=== PATIENT | female | born 1985 | race Caucasian/White ===

== ENCOUNTER 2018-12-21 11:42 | Observation (INO) ==
[2018-12-21] MEDS ORDERED: ZOFRAN IV PRN (13:41)
[2018-12-21] MEDS: DILAUDID IV PRN ×2 (14:18→18:45)
[2018-12-21 14:58] LABS: BASO# 0.02 X1000 (0.0-0.2); BASO% 0.2 % (0.0-0.8); EOS# 0.14 X1000 (0.0-0.7); EOS% 1.5 % (0.0-10.0); HEMATOCRIT 44.6 % (37.0-47.0); HEMOGLOBIN 15.3 g/dL (12.0-16.0); IMM GRAN# 0.02 X1000 (0.0-0.04); IMM GRAN% 0.2 % (0.0-0.5); LYMPH# 2.73 X1000 (1.2-3.4); LYMPH% 28.6 % (20.5-51.1); MCH 32.1 PG (27-31); MCHC 34.3 g/dL (33-37); MCV 93.7 FL (81-99); MONO# 0.67 X1000 (0.11-0.59); MPV 8.8 FL (7.4-10.4); NEUT# 5.98 X1000 (1.4-6.5); NEUT% 62.5 % (42.2-75.2); PLT 475 X1000 (130-400); RBC 4.76 XMIL (4.2-5.4); RDW 13.2 % (11.5-14.5); WBC 9.56 X1000 (4.8-10.8)
[2018-12-21 16:29] LABS: AGAP 14; ALB/GLOB RATIO 1.3; ALBUMIN 4.3 g/dL (3.5-5.0); ALKALINE PHOSPHATASE 131 U/L (32-104); AMYLASE 32 U/L (20-200); BUN 8 mg/dL (8-22); CALCIUM 9.3 mg/dL (8.8-10.2); CHLORIDE 103 mmol/L (98-107); COSMO 278; CREATININE 0.8 mg/dL (0.5-0.9); ESTIMATED GFR > 60; GLUCOSE 76 mg/dL (70-104); GOT 19 U/L (10-30); GPT 31 U/L (10-36); LIPASE 26 U/L (13-60); SODIUM 141 mmol/L (136-145); TCO2 24 mmol/L (25-35); TOTAL BILIRUBIN 0.39 mg/dL (0.20-1.00); TOTAL PROTEIN 7.7 g/dL (6.3-8.3)
[2018-12-21] MEDS ORDERED: NICODERM PATCH TD PRN (17:45)
--- NOTE | 2018-12-21 17:54 | Diag Imaging Result Doc PS360 ---
EXAM: CT ABDOMEN/PELVIS W/O CONTRAST INDICATION: abd pain, vomiting TECHNIQUE: This exam was performed using automated exposure control, adjustment of mA or kV according to patient size, and/or use of iterative reconstruction technique. COMPARISON: 08/25/2014 FINDINGS: The liver, gallbladder, spleen, pancreas, adrenal glands, and kidneys are unremarkable. The urinary bladder is nondistended and is grossly unremarkable, otherwise. The reproductive tract is unremarkable as imaged. The appendix is normal. There is no evidence of bowel wall thickening and no bowel obstruction. The remainder of the GI tract is grossly unremarkable. No focal inflammatory changes, free abdominal gas, or free fluid is identified. IMPRESSION: No evidence of acute pathology by CT. Electronically signed by Dario Rm 12/21/2018 5:52 PM
[2018-12-21] MEDS: D5 1/2 NS + KCL 10 MEQ 1,000 ML IV SCH (17:57)
[2018-12-21] MEDS: ZOFRAN IV PRN (18:45)
--- NOTE | 2018-12-21 19:41 | Diag Imaging Result Doc PS360 ---
EXAM: CHEST-2 VIEWS INDICATION: abd pain, vomiting TECHNIQUE: 2 views COMPARISON: 10/22/2014 FINDINGS: The lungs are grossly clear. There is no discrete pleural fluid collection or pneumothorax. The cardiomediastinal silhouette and central vasculature are grossly unremarkable. IMPRESSION: No evidence of acute pathology by plain radiograph. Electronically signed by Dario Rm 12/21/2018 7:39 PM
[2018-12-21] MEDS: XANAX PO SCH (22:51)
[2018-12-22] MEDS: ZOFRAN IV PRN ×5 (00:45→23:38)
[2018-12-22] MEDS: DILAUDID IV PRN ×2 (00:47→05:26)
[2018-12-22] MEDS: ZOLOFT PO SCH (08:10)
--- NOTE | 2018-12-22 09:03 | HISTORY AND PHYSICAL ---
HISTORY OF PRESENT ILLNESS: Ms. Rebolledo is a 33-year-old white female, who was admitted with severe abdominal pain, persistent nausea, vomiting, and diarrhea. She vomited 2 times and had 3 large stools. She has been sick for about 7 days and it is getting worse. PAST SURGICAL HISTORY: She had 2 surgeries on her right knee; 1 was an open surgery and 1 was an arthroscopic surgery, and she had a lumpectomy done from the left breast. SOCIAL HISTORY: She does smoke about a pack of cigarettes per day. Does not use any alcohol, illicit drugs. REVIEW OF SYSTEMS: Other than abdominal pain and diarrhea is noncontributory. She does not pass any blood in the stool or vomitus. There are no urinary symptoms. She has minimal shortness of breath. PHYSICAL EXAMINATION: GENERAL: On physical examination, the patient is alert. VITAL SIGNS: Reveal temperature normal, pulse 92 per minute, respiratory rate 18 per minute, blood pressure 117/81. HENT: Head normocephalic. Pupils PERRLA. Fundus examination not done. NECK: Supple. JVP normal. There is no evidence of lymphadenopathy, thyroid enlargement. ENT EXAMINATION: Unremarkable. EXTREMITIES: No pedal edema, calf tenderness, anemia, cyanosis or clubbing. Pedal pulses well felt. BREAST EXAM: Not done. CHEST: Normal inspection. LUNGS: Clear on auscultation. HEART: PMI cannot be located. Sounds normal. No murmur, gallop or rub noted. ABDOMEN: Nondistended. Hernial orifices normal. No guarding, rigidity, free fluid, masses, or organomegaly. Bowel sounds normal. There is diffuse tenderness over the abdomen. RECTAL: Exam deferred. [employer] WET PROCESS: Higher functions: Patient apprehensive. Cranial nerves normal. Motor and sensory system examination unremarkable. Deep tendon reflexes normal. Plantars downgoing. Skull and spine examination normal for age. No cerebellar signs or signs of meningeal irritation. Locomotor exam reveals presence of severe pain in the right knee movements. Movements are slightly restricted. SKIN EXAM: Reveals minimal dehydration. The patient is obese. CLINICAL IMPRESSION: Nausea, vomiting, severe abdominal pain and intermittent diarrhea. The patient has a history of polycystic ovarian syndrome and has arthritis in the right knee joint. cc: Felix Leach MD
[2018-12-22] MEDS: NORCO-7.5 PO PRN ×3 (10:00→23:10)
[2018-12-22] MEDS: D5 1/2 NS + KCL 10 MEQ 1,000 ML IV SCH ×2 (16:00→18:46)
[2018-12-22] MEDS: XANAX PO SCH (23:09)
[2018-12-23] MEDS: ZOFRAN IV PRN ×2 (04:19→08:58)
[2018-12-23] MEDS: NORCO-7.5 PO PRN ×2 (04:22→09:10)
[2018-12-23] MEDS ORDERED: PROTONIX PO SCH (07:00)
[2018-12-23 07:51] VITALS: BP 119/70
--- NOTE | 2018-12-23 08:42 | PROGRESS NOTE ---
DATE: 12/23/2018 Ms. Rebolledo is doing much better today. She still has mild nausea. She is better with Zofran and we will prescribe her the Zofran. The CT scan of the abdomen was performed and it said the liver, gallbladder, spleen, pancreas, and adrenal glands, and kidneys are unremarkable. She is insisting for ultrasound. However, she has had breakfast today and they cannot do it until tomorrow. We will discharge her today and then try to do the ultrasound of the gallbladder as an outpatient. I am going to discharge her today. cc: Felix Leach MD
[2018-12-23] MEDS: ZOLOFT PO SCH (08:58)
--- NOTE | 2018-12-24 08:24 | DISCHARGE SUMMARY ---
ADMISSION DATE: 12/21/2018 DISCHARGE DATE: 12/23/2018 HISTORY: Ms. Perodmo was admitted with persistent nausea, vomiting and diarrhea with some abdominal pain. CT of the abdomen and pelvis was unremarkable. Chest x-ray was normal. Her laboratory data revealed CBC was unremarkable. Stool culture was negative. Chemistry profile was normal. Liver enzymes are normal. Alkaline phosphatase was slightly elevated at 131. Her CT scan is normal. She is feeling better today. We will discharge her with prescriptions of Protonix and Zofran. She will be seen in the office in about 7 days. cc: Felix Leach MD
--- NOTE | 2018-12-25 06:41 | DISCHARGE SUMMARY ---
ADMISSION DATE: 12/21/2018 DISCHARGE DATE: 12/23/2018 HISTORY: Ms. Rebolledo was admitted with diarrhea, vomiting and nausea, and abdominal pain. She had a CT scan of the abdomen. Abdominal pain was severe. It revealed no evidence of acute pathology. The gallbladder was said to be normal, [*] gallbladder, spleen, pancreas and kidneys are unremarkable. The patient still insists that she has [*]problems. She is obese. She has been nauseous. Chest x-ray was unremarkable. Her CBC was normal. Chemistry profile was normal also except for increase in alkaline phosphatase which is again slightly suspicious for cholecystitis or maybe cholelithiasis. We will do the gallbladder ultrasound as an outpatient. IV fluids and Zofran were given. She symptomatically improved, and we decided to discharge her today. FINAL DIAGNOSIS: Abdominal pain, etiology undetermined, possible cholecystitis. cc: Felix Leach MD
== END 2018-12-23 09:35 | disposition home or self-care (01) ==
LOC: DIRADM 11:42 → INTOOBSV 11:42 → 3N 13:21
PROVIDERS: ADMIT Internal Medicine; ATTEND Internal Medicine
CPT/HCPCS: 71020; 71046; 74176; 80053; 82150; 83690; 85025; 87045; 87046; A9270; J1170; J2405; J3480